=== PATIENT | male | born 1965 | race Two or more races ===

== ENCOUNTER 2016-07-15 06:20 | Emergency (ER) | payer MEDICAID ==
[~2016-07-15] VITALS: Ht 167.6 cm; Wt 85.3 kg
[~2016-07-15 06:20] MED LIST: AMOXICILLI250 MG/5 M ORAL; AUGMENTIN 875-1 EAC1 ORAL; HYDROCODON-ACE1 EA15 ORAL; MECLIZINE HCL25 MG PO; NKM
[2016-07-15 06:35] VITALS: BP 129/86
[2016-07-15] MEDS ORDERED: Tetracaine 0.5% Opth Soln LEFT EYE ONE (07:00)
[2016-07-15] MEDS ORDERED: Tobramycin Op Soln 0.3% RIGHT EYE ONE (07:45)
[2016-07-15] MEDS ORDERED: Ciprofloxacin Opth Soln LEFT EYE ONE (07:45)
--- NOTE | 2016-07-15 07:46 | Emergency Room Report ---
History of Present Illness General Chief Complaint: Eye Problems Source: Patient Present Illness HPI This is a 50-year-old male presented after increased left eye pain and foreign body sensation. The patient stated he was a running some metal at home attempting to fix a garage door. He the reported wearing glasses however he stated that he had some metal enter his eye. Injury occurred 1 day prior to arrival. Allergies: Coded Allergies: No Known Allergies (Unverified , 03/01/12) Patient History Past Medical History: see triage record Reviewed Nursing Documentation: PMH: Agreed, PSxH: Agreed Nursing Documentation-PMH Past Medical History: No Stated History Review of Systems All Other Systems: negative except mentioned in HPI Physical Exam Vital Signs Date Time Temp Pulse Resp B/P Pulse Ox O2 Delivery O2 Flow Rate FiO2 07/15/16 06:24 98.4 68 16 137/84 97 Room Air General Appearance: well appearing, no apparent distress, alert, GCS 15 Head: normocephalic, atraumatic Eyes: bilateral eye PERRL, bilateral eye other - foreign body to left eye ENT: hearing grossly normal, normal voice Neck: full range of motion, supple Respiratory: no respiratory distress, speaking full sentences Cardiovascular #1: normal inspection, normal peripheral pulses, regular rate, rhythm Gastrointestinal: normal inspection, normal bowel sounds, non tender, soft Musculoskeletal: no calf tenderness Neurologic: normal inspection, alert, oriented x3, normal gait Psychiatric: mood/affect normal Skin: no rash Medical Decision Making Diagnostic Impression: Primary Impression: Foreign body, eye ER Course Patient presented for a left eye pain and swelling. Differential diagnoses include was not limited to foreign body, conjunctivitis, perforated globe, among others. The patient was noted to have what appears to be metallic foreign body any left eye visual axis. The visual acuity was noted to be the 20 /50 in the left eye and 20/30 in the right eye. Dr. Luis Tao was contacted for opthalmology consult. Foreign body was removed by Dr. Kumar. Patient was advised to use Cipro eye drops four times a day. The patient's fall Dr. Kumar Last Vital Signs Date Time Temp Pulse Resp B/P Pulse Ox O2 Delivery O2 Flow Rate FiO2 07/15/16 06:35 98.2 66 16 129/86 99 Room Air Status: improved Disposition: HOME, SELF-CARE Condition: Stable Referrals: NOT CHOSEN IPA/MD,REFERRING (PCP) Jorge A Bernal Jul 15, 2016 07:46
[2016-07-15 08:24] VITALS: BP 130/80
--- NOTE | 2016-07-15 08:25 | Consultation ---
Consult Note Consult Note Ophthalmology Emergency Room Consultation Referring Physician: Jorge A Bernal Reason for Consultation: Foreign body, left eye History of the present illness: The patient is a 50-year-old man who was grinding metal at home yesterday when he felt a particle hit his left eye. He was wearing safety glasses. He presented to the [facility] ER and was noting pain and redness in the left eye. Past medical Hx: none Medications: none Allergies: no known drug allergies Family History: non-contributory Social History: denies tobacco use Review of Systems: General: no fever HEENT: see HPI Cardiac: no chest pain Respiratory: no shortness of breath GI: no nausea : no urinary complaints MS: no joint pains Derm: no rashes Psychiatric: no depression Neurologic: no numbness, no weakness Heme: no easy bruising Examination: Mini-mental status examination revealed the patient to be awake, alert and oriented to person, place and time with appropriate mood and affect. Visual Acuity at near without correction: OD: J1 = ~20/25 OS: J1 = ~20/25 Intraocular pressure (tonopen): OD: 13 mmHg OS: 16 mmHg Pupils: equal, round and reactive to light, without afferent pupillary defect in either eye Extra-ocular motility: full OU Confrontational visual gonzalez: full to finger counting OU Anterior Segments: External: normal lids and orbits OD, lid edema OS Conjunctivae: white and quiet OD, 2+ injection OS Cornea: Clear OD, metallic foreign body just superior to the visual axis Anterior Chambers: Deep and Quiet OU Irides: Round and flat OU Lenses: Clear OU Dilated Fundus Examination (phenylephrine 2.5%/tropicamide 1%): Vitreous: Clear OU Optic Nerves: Sharp OU Vessels: Normal course and caliber OU Maculae: Flat OU Periphery: normal OU Studies: anterior segment slit lamp photos were taken documenting the foreign body Assessment/Plan Impression: 1. Corneal foreign body, left eye Assessment and Plan: Mr. Allen has a metallic corneal foreign body in the left eye. This was removed at the slit lamp. The procedure is dictated under a separate report. He will use ciprofloxacin eye drops to the left eye QID. He was given my office contact information to schedule a follow up appointment. Thank you very much for this consultation Luis Kumar M.D. [phone] LUIS KUMAR Jul 15, 2016 08:25
--- NOTE | 2016-07-15 20:30 | Operative Note - Dictated ---
DATE OF OPERATION: 07/15/2016 PREOPERATIVE DIAGNOSIS: Metallic corneal foreign body, left eye. POSTOPERATIVE DIAGNOSIS: Metallic corneal foreign body, left eye. PROCEDURE: Removal of metallic corneal foreign body, left eye. SURGEON: Luis Kumar M.D. ANESTHESIA: Topical. SPECIMENS: None. COMPLICATIONS: None. ESTIMATED BLOOD LOSS: None. INDICATIONS FOR THE PROCEDURE: The patient is a 50-year-old man, who was grinding metal at home yesterday. He was wearing safety goggles but a particle got under his goggles and became lodged in his left eye. He presented to the [facility] emergency room. He was noted to have corneal foreign body. He was informed risks, benefits, details, and alternatives for removal of the foreign body and he elected to proceed. DETAILS OF THE PROCEDURE: The patient was seated with a slit lamp. The correct eye was identified. He was given topical tetracaine drops and ciprofloxacin drops. A 27-gauge needle was then used to remove a small metallic foreign body from the left cornea. Next the rust ring was removed with the needle. At the conclusion of the procedure, additional ciprofloxacin drops were applied to the eye. The patient tolerated the procedure well. Luis Kumra M.D. DR: Javed JOB#: [id number] CC: MICHELLE
== END 2016-07-15 08:29 | disposition home or self-care (01) ==
LOC: EMR 06:52
DX: T15.02XA Foreign body in cornea, left eye, initial encounter (principal); X58.XXXA Exposure to other specified factors, initial encounter; Y93.9 Activity, unspecified; Y92.009 Unspecified place in unspecified non-institutional (private) residence as the place of occurrence of the external cause
CPT/HCPCS: 65222; 99284; Z7502

== ENCOUNTER 2018-02-11 07:38 | Emergency (ER) | payer MEDICAID ==
[~2018-02-11] VITALS: Ht 165.1 cm; Wt 82.6 kg
--- NOTE | 2018-02-11 07:55 | Emergency Room Report ---
History of Present Illness General Chief Complaint: Lower Extremity Injury Source: Patient Present Illness HPI Patient presents with complaints of swelling and ecchymosis to the right ankle Reports that 2 days ago he had a fall off of the chair he had some mild discomfort at that time and the ankle however he has been ambulatory and the discomfort is very minimal however given the swelling and ecchymosis he was concerned Denies any knee pain denies any pelvic pain Denies any other lapse of consciousness denies any neuropathy Allergies: Coded Allergies: No Known Allergies (Unverified , 03/01/12) Patient History Past Medical History: see triage record Pertinent Family History: none Reviewed Nursing Documentation: PMH: Agreed; PSxH: Agreed Nursing Documentation-PMH Past Medical History: No Stated History Review of Systems All Other Systems: negative except mentioned in HPI Physical Exam Vital Signs Date Time Temp Pulse Resp B/P (MAP) Pulse Ox O2 Delivery O2 Flow Rate FiO2 02/11/18 07:40 98.6 79 17 138/80 99 Sp02 EP Interpretation: reviewed, normal General Appearance: well appearing, no apparent distress Head: normocephalic, atraumatic Eyes: bilateral eye PERRL, bilateral eye EOMI ENT: normal pharynx Neck: supple Musculoskeletal: swelling - And ecchymosis noted to the right ankle pulses intact sensory intact Neurologic: alert, oriented x3, responsive Skin: other - As above Lymphatic: no adenopathy Procedures Splinting Splinting : Consent: Verbal Location: Right ankle Pre-Made Type: aircast Splint: sugar-tong Pre-Proc Neuro Vasc Exam: normal Post-Proc Neuro Vasc Exam: normal Patient Tolerated: Well Complications: None Medical Decision Making Diagnostic Impression: Primary Impression: Ankle sprain ER Course X-ray imaging does not reveal any obvious acute fracture however given the swelling and ecchymosis ligamental another soft tissue injury is likely Patient is provided with a splint encouraged for nonweightbearing And close outpatient follow-up , Other X-Ray Diagnostic Results Other X-Ray Diagnostic Results : X-Ray ordered: Right ankle # of Views/Limited Vs Complete: 3 View Indication: Pain EP Interpretation: Yes Interpretation: no dislocation, no fractures, other - Soft tissue swelling Impression: Other - Soft tissue swelling Electronically Signed by: Saulo Woods DO Last Vital Signs Date Time Temp Pulse Resp B/P (MAP) Pulse Ox O2 Delivery O2 Flow Rate FiO2 02/11/18 07:40 98.6 79 17 138/80 99 Status: improved Disposition: HOME, SELF-CARE Condition: Improved Additional Instructions: Patient is provided with the discharge instructions notified to follow up with primary doctor in the next 2-3 days otherwise return to the er with any worsening symptoms. Please note that this report is being documented using DRAGON technology. This can lead to erroneous entry secondary to incorrect interpretation by the dictating instrument. Saulo Woods DO Feb 11, 2018 07:55
[2018-02-11 08:50] VITALS: BP 138/80
--- NOTE | 2018-02-12 10:04 | Diagnostic Imaging Report ---
Indication: Pain right ankle Comparison: None Findings: 3 views of the right ankle obtained. No acute fracture, malalignment, periostitis, or osteochondral defects are identified. Soft tissue swelling is present. Impression: No acute fracture. Soft tissue swelling noted
== END 2018-02-11 08:50 | disposition home or self-care (01) ==
LOC: EMR 08:00
DX: S93.401A Sprain of unspecified ligament of right ankle, initial encounter (principal); W07.XXXA Fall from chair, initial encounter; Y93.9 Activity, unspecified; Y92.9 Unspecified place or not applicable
CPT/HCPCS: 99283

== ENCOUNTER 2020-03-21 04:17 | Emergency (ER) | payer MEDICAID ==
[~2020-03-21] VITALS: Ht 162.6 cm; Wt 85.7 kg
--- NOTE | 2020-03-21 05:10 | NUR ---
ED Nurse Note: pt comes into ED c/o anxiety for the last 2-3 weeks. states he has numbness/tingling in left arm and sometimes his left leg. pt a&ox3, vs wnl with slightly elevated BP. pt denies any pain at this time. pt breathing without complications on RA and resting comfortably on stretcher. labs and urine obtained. IV 20g right AC established. orders sent to lab. pt received medication. pt going to CT. awaiting pts return.
--- NOTE | 2020-03-21 05:11 | Emergency Room Report ---
History of Present Illness General Chief Complaint: General Complaint Source: Patient Present Illness HPI Is a 54-year-old male with no past medical history. He presents with chief complaint of and dizziness. Onset around 10 PM. When he said he went to sleep he woke up feeling he could not breathe and felt he is going to pass away. He also now complains of left arm numbness and tingliness. Similar symptom 3 weeks ago but it went away on its own. Never had a history of anxiety before. No fever chills but no nausea no vomiting. No history of high blood pressure. No stress or anything cough. Not suicidal or homicidal. Allergies: Coded Allergies: No Known Allergies (Unverified , 03/21/20) COVID-19 Screening Contact w/high risk pt: No Experienced COVID-19 symptoms?: No COVID-19 Testing performed MOLD TOOLER: No Patient History Past Medical History: see triage record, old chart reviewed Past Surgical History: none Pertinent Family History: none Social History: Denies: smoking Immunizations: other Reviewed Nursing Documentation: PMH: Agreed; PSxH: Agreed Nursing Documentation-PMH Past Medical History: No Stated History Review of Systems Eye: Denies: eye pain, blurred vision ENT: Denies: ear pain, nose congestion, throat swelling Respiratory: Denies: cough, shortness of breath Cardiovascular: Denies: chest pain, palpitations Gastrointestinal: Denies: abdominal pain, diarrhea, nausea, vomiting Musculoskeletal: Denies: back pain, joint pain Skin: Denies: rash Neurological: Reports: headache, paresthesia; Denies: numbness Endocrine: Denies: increased thirst, increased urine Hematologic/Lymphatic: Denies: easy bruising All Other Systems: negative except mentioned in HPI Physical Exam Vital Signs Date Time Temp Pulse Resp B/P (MAP) Pulse Ox O2 Delivery O2 Flow Rate FiO2 03/21/20 05:01 98.2 68 18 152/80 (104) 100 Room Air Vitals with high blood pressure Sp02 EP Interpretation: reviewed, normal General Appearance: well appearing, no apparent distress, alert Head: normocephalic, atraumatic Eyes: bilateral eye PERRL, bilateral eye EOMI ENT: hearing grossly normal, normal pharynx Neck: full range of motion, supple, no meningismus Respiratory: chest non-tender, lungs clear, normal breath sounds Cardiovascular #1: regular rate, rhythm, no murmur Gastrointestinal: normal bowel sounds, non tender, no mass, no organomegaly, no bruit, non-distended Musculoskeletal: back normal, normal range of motion, gait/station normal Psychiatric: anxious Medical Decision Making Diagnostic Impression: Primary Impression: Anxiety, generalized ER Course This patient with symptoms consistent with generalized anxiety. His blood pressure is elevated initially. Now that he is calmer after Ativan, blood pressure 130/76. There is no evidence of any endorgan damage. No evidence of any bleed, TIA or CVA. No evidence of ACS, PE, dissection to name a few. Will discharge home. Rhythm Strip Diag. Results EP Interpretation: yes Rate: 75 Rhythm: NSR, no PVC's, no ectopy CT/MRI/US Diagnostic Results CT/MRI/US Diagnostic Results : Imaging Test Ordered: CT head Impression Negative per radiologist Last Vital Signs Date Time Temp Pulse Resp B/P (MAP) Pulse Ox O2 Delivery O2 Flow Rate FiO2 03/21/20 05:01 98.2 68 18 152/80 (104) 100 Room Air Status: improved Disposition: HOME, SELF-CARE Condition: Stable Scripts Lorazepam* (ATIVAN*) 1 Mg Tablet 1 MG ORAL THREE TIMES A DAY for anxiety, #20 TAB Prov: Jules Garcia MD 03/21/20 Referrals: NOT CHOSEN IPA/,REFERRING (PCP) Additional Instructions: Follow-up with your doctor in 7 days. Return if symptoms worsen. Jules Garcia MD Mar 21, 2020 05:11
[2020-03-21] MEDS ORDERED: LORazepam Inj 2mg/ml 1ml IV ONE (05:15)
[2020-03-21 05:23] VITALS: BP 161/87
[2020-03-21 05:32] LABS: APPEARANCE,URINE CLEAR; BASOPHILS % (AUTO) 0.7 % (0.0-2.0); BILIRUBIN, URINE NEGATIVE (NEGATIVE); COLOR,URINE PALE YELLOW; EOSINOPHILS % (AUTO) 1.2 % (0.0-3.0); GLUCOSE, URINE (UA) NEGATIVE (NEGATIVE); HEMATOCRIT 46.6 % (42.0-52.0); HEMOGLOBIN 15.3 G/DL (14.2-18.0); KETONES,URINE NEGATIVE (NEGATIVE); LEUKOCYTE ESTERASE ,URINE NEGATIVE (NEGATIVE); LYMPHOCYTES % (AUTO) 28.7 % (20.0-45.0); MEAN CORPUSCULAR VOLUME 94 FL (80-99); MONOCYTES % (AUTO) 6.7 % (1.0-10.0); NEUTROPHILS % (AUTO) 62.8 % (45.0-75.0); NITRITE,URINE NEGATIVE (NEGATIVE); PH,URINE 6 (4.5-8.0); PLATELET COUNT 256 K/UL (150-450); PROTEIN,URINE NEGATIVE (NEGATIVE); RED BLOOD COUNT 4.96 M/UL (4.70-6.10); RED CELL DISTRIBUTION WIDTH 11.4 % (11.6-14.8); UROBILINOGEN,URINE NORMAL MG/DL (0.0-1.0); WHITE BLOOD COUNT 6.5 K/UL (4.8-10.8)
[2020-03-21 05:45] LABS: ANION GAP 9 mmol/L (5-15); BLOOD UREA NITROGEN 16 mg/dL (7-18); CALCIUM 8.7 MG/DL (8.5-10.1); CARBON DIOXIDE 26 MMOL/L (21-32); CHLORIDE 106 MMOL/L (98-107); CREATININE 0.8 MG/DL (0.55-1.30); POTASSIUM 4.1 MMOL/L (3.5-5.1); SODIUM 141 MMOL/L (136-145)
[2020-03-21] MEDS ORDERED: ATIVAN1 MG ORAL (05:58)
[2020-03-21 06:01] VITALS: BP 120/69
--- NOTE | 2020-03-21 06:13 | Diagnostic Imaging Report ---
EXAM: CT Head Without Intravenous Contrast CLINICAL HISTORY: DIZZY TECHNIQUE: Axial computed tomography images of the head/brain without intravenous contrast. CTDI is 53.40 mGy and DLP is 1098.90 mGy-cm. One or more of the following dose reduction techniques were used: automated exposure control, adjustment of the mA and/or kV according to patient size, use of iterative reconstruction technique. COMPARISON: No relevant prior studies available. FINDINGS: Brain: Unremarkable. No hemorrhage. No significant white matter disease. No edema. Ventricles: Unremarkable. No ventriculomegaly. Bones/joints: Unremarkable. No acute fracture. Soft tissues: Unremarkable. Sinuses: Unremarkable as visualized. No acute sinusitis. Mastoid air cells: Unremarkable as visualized. No mastoid effusion. IMPRESSION: No evidence of acute intracranial abnormality.
[2020-03-21 06:25] VITALS: BP 127/78
--- NOTE | 2020-03-21 06:26 | NUR ---
ER DISCHARGE NOTE: Patient is cleared to be discharged per ER MD, pt is aox4, on room air, with stable vital signs. pt was given dc and prescription instructions, pt was able to verbalize understanding, pt id band and iv site removed without complications. pt is able to ambulate with steady gait. pt took all belongings.
== END 2020-03-21 06:26 | disposition home or self-care (01) ==
LOC: EMR 05:02
DX: F41.1 Generalized anxiety disorder (principal)
CPT/HCPCS: 36415; 70450; 80048; 81001; 84484; 85025; 96374; Z7502; 99284

== ENCOUNTER 2020-04-04 16:37 | Emergency (ER) | payer MEDICAID ==
[~2020-04-04] VITALS: Ht 167.6 cm; Wt 87.1 kg
[~2020-04-04 16:37] MED LIST changes: +ATIVAN1 MG ORAL
[2020-04-04 17:17] VITALS: BP 131/80
[2020-04-04 17:40] VITALS: BP 125/72
--- NOTE | 2020-04-04 17:40 | Emergency Room Report ---
History of Present Illness General Chief Complaint: Dizziness Present Illness HPI 54 YO Male c/o Intermittent dizziness when eyes closed. Pt. also reports symptoms when standing or lying. He describes room spinning. He reports right ear pain intermittently as well. Denies visual/hearing changes. Pt. reports bilateral arm and feet numbness and paresthesias intermittent. He reports since arriving at ED has had constant left arm and hand paresthesia. He denies neck pain or previous neck injuries. He denies muscle weakness. He denies CP, SOB,or JORGENSEN. Reports nausea but denies vomiting. Has been taking Meclizine x 2 days with no relief. PT. was previously rx'd Ativan and Vitamin D. Pt. reports he has unwanted SE's with Ativan of constipation, nasal and oral dryness and congestion. Pt. reports his symptoms are causing him to be anxious. Pt. reports sitting up on the edge of the bed is when he has most relief. He reports exacerbation of the room spinning around him if he looks too quickly to the left as well. He denies imbalance or difficulty with walking. He denies drug use. He denies recent head trauma. He reports vertigo once in the past "years ago". (Ana Sahu) Allergies: Coded Allergies: No Known Allergies (Unverified , 03/21/20) COVID-19 Screening Contact w/high risk pt: No Experienced COVID-19 symptoms?: No COVID-19 Testing performed MANAGER NEONATAL: No (Ana Sahu) Patient History Past Medical History: see triage record Past Surgical History: none Pertinent Family History: none Reviewed Nursing Documentation: PMH: Agreed; PSxH: Agreed (Ana Sahu) Review of Systems All Other Systems: negative except mentioned in HPI (Ana Sahu) Physical Exam Vital Signs Date Time Temp Pulse Resp B/P (MAP) Pulse Ox O2 Delivery O2 Flow Rate FiO2 04/04/20 16:48 99.0 74 18 129/86 (100) 95 Room Air 04/04/20 17:18 100 Sp02 EP Interpretation: reviewed, normal General Appearance: no apparent distress, alert, GCS 15, non-toxic Head: normocephalic, atraumatic Eyes: bilateral eye normal inspection, bilateral eye PERRL, bilateral eye EOMI ENT: hearing grossly normal, normal voice, TMs + canals normal Neck: full range of motion Respiratory: chest non-tender, lungs clear, normal breath sounds, no wheezing, speaking full sentences Cardiovascular #1: regular rate, rhythm, no edema Musculoskeletal: back normal, normal range of motion, gait/station normal, non- tender, other Neurologic: alert, motor strength/tone normal, oriented x3, sensory intact, responsive, speech normal, normal gait, no pronator, other - unable to illicit nystagmus. Psychiatric: judgement/insight normal Lymphatic: no adenopathy (Ana Sahu) Medical Decision Making PA Attestation Dr. Jose is my supervising Physician whom patient management has been discussed with. (Ana Sahu) Diagnostic Impression: Primary Impression: Vertigo ER Course 54 YO Male c/o Intermittent dizziness when eyes closed. Pt. also reports symptoms when standing or lying. He describes room spinning. He reports right ear pain intermittently as well. Denies visual/hearing changes. Pt. reports bilateral arm and feet numbness and paresthesias intermittent. He reports since arriving at ED has had constant left arm and hand paresthesia. He denies neck pain or previous neck injuries. He denies muscle weakness. He denies CP, SOB,or JORGENSEN. Reports nausea but denies vomiting. Has been taking Meclizine x 2 days with no relief. PT. was previously rx'd Ativan and Vitamin D. Pt. reports he has unwanted SE's with Ativan of constipation, nasal and oral dryness and congestion. Pt. reports his symptoms are causing him to be anxious. Pt. reports sitting up on the edge of the bed is when he has most relief. He reports exacerbation of the room spinning around him if he looks too quickly to the left as well. He denies imbalance or difficulty with walking. He denies drug use. He denies recent head trauma. He reports vertigo once in the past "years ago". Ddx considered but are not limited to Mnire's, BPPV, labyrinthitis, cerebellar stroke, hypovolemia, cardiac cause. Vital signs: are WNL, pt. is afebrile No focal deficit to indicate TIA or CVA. No vertical nystagmus. Unable to illicit nystagmus. ORDERS: -EKG: NSR 67 BPM, no st changes. -CMP: Unremarkable - CBC: unremarkable -Orthostatic VS: HR increased from 68-86 with standing, less than 20 bmp. BP did not have much variation. ED INTERVENTIONS: - 1 Liter NS Bolus x 2 - 25mg Benadryl IV pt. failed Margaret Maneuver. DISCHARGE: At this time pt. is stable for d/c to home. Will provide printed patient care instructions, and any necessary prescriptions. Care plan and follow up instructions have been discussed with the patient prior to discharge. (Ana Sahu) ER Course Patient was able to ambulate without assistance. MRI read by radiology showed sinus disease without evidence of acute intracranial pathology. Patient was advised to follow-up with his primary care physician for recheck. He was advised to return if worse. This medical record is generated with [employer] global implementation manager software. There may be some global implementation manager discrepancies related to use of this software (Jorge A Bernal MD) EKG Diagnostic Results Troponin ordered: No EKG Time: 17:26 Rate: normal Rhythm: NSR - [address] Segments: no acute changes ASA given to the pt in ED: No PA Scribe Text This Interpretation was scribed by EMILIANO Sahu. (Ana Sahu) CT/MRI/US Diagnostic Results CT/MRI/US Diagnostic Results : Imaging Test Ordered: MRI Brain w. contrast (Ana Sahu) Last Vital Signs Date Time Temp Pulse Resp B/P (MAP) Pulse Ox O2 Delivery O2 Flow Rate FiO2 04/04/20 17:18 69 18 Room Air 100 04/04/20 17:17 131/80 100 04/04/20 16:48 99.0 (Ana Sahu) Status: improved (Jorge A Bernal MD) Disposition: HOME, SELF-CARE Condition: Stable Signed Out To: Dr. Jose (Ana Sahu) Scripts Clarithromycin* (CLARITHROMYCIN*) 500 Mg Tablet 500 MG PO Q12HR, #28 TAB Prov: Jorge A Bernal MD 04/04/20 Meclizine Hcl* (MECLIZINE*) 25 Mg Tablet 25 MG ORAL THREE TIMES A DAY, #30 TAB Prov: Jorge A Bernal MD 04/04/20 Ana Sahu Apr 04, 2020 17:40 Jorge A Bernal MD Apr 04, 2020 23:12
[2020-04-04 17:41] VITALS: BP 120/77
[2020-04-04 17:42] VITALS: BP 119/80
[2020-04-04 17:44] LABS: APPEARANCE,URINE CLEAR; BILIRUBIN, URINE NEGATIVE (NEGATIVE); COLOR,URINE PALE YELLOW; GLUCOSE, URINE (UA) NEGATIVE (NEGATIVE); KETONES,URINE 1+ (NEGATIVE); LEUKOCYTE ESTERASE ,URINE NEGATIVE (NEGATIVE); NITRITE,URINE NEGATIVE (NEGATIVE); PH,URINE 6 (4.5-8.0); PROTEIN,URINE NEGATIVE (NEGATIVE); UROBILINOGEN,URINE NORMAL MG/DL (0.0-1.0)
[2020-04-04 17:46] LABS: BASOPHILS % (AUTO) 1.7 % (0.0-2.0); EOSINOPHILS % (AUTO) 0.6 % (0.0-3.0); HEMATOCRIT 41.9 % (42.0-52.0); HEMOGLOBIN 13.9 G/DL (14.2-18.0); LYMPHOCYTES % (AUTO) 25.9 % (20.0-45.0); MEAN CORPUSCULAR VOLUME 94 FL (80-99); MONOCYTES % (AUTO) 6.3 % (1.0-10.0); NEUTROPHILS % (AUTO) 65.5 % (45.0-75.0); PLATELET COUNT 281 K/UL (150-450); RED BLOOD COUNT 4.47 M/UL (4.70-6.10); RED CELL DISTRIBUTION WIDTH 11.6 % (11.6-14.8); WHITE BLOOD COUNT 8.3 K/UL (4.8-10.8)
[2020-04-04 18:14] LABS: ANION GAP 12 mmol/L (5-15); BLOOD UREA NITROGEN 18 mg/dL (7-18); CALCIUM 8.7 MG/DL (8.5-10.1); CARBON DIOXIDE 24 MMOL/L (21-32); CHLORIDE 105 MMOL/L (98-107); CREATININE 0.7 MG/DL (0.55-1.30); POTASSIUM 3.7 MMOL/L (3.5-5.1); SODIUM 140 MMOL/L (136-145)
[2020-04-04] MEDS ORDERED: DiphenhydrAMINE 50mg/ml Inj IVP ONE (18:45)
[2020-04-04 18:55] VITALS: BP 134/76
--- NOTE | 2020-04-04 18:58 | NUR ---
pt arrived for dizziness, anxiety, vertigo, nauseousness. pt denies vomiting. pt seen last week for symptoms. pt given medication and taking at home with minimal relief. pt states it gets worse at night when he sleeps and closes his eyes. pt states R ear pain when he feels unsteady at home. pt medicated, orthostatic vitals taken, ortho VSS. pt denies falling, denies vision changes.
[2020-04-04] MEDS ORDERED: Gadavist 7.5mMol/7.5ml vial IV PRN (20:30)
--- NOTE | 2020-04-04 22:38 | Diagnostic Imaging Report ---
EXAM: MR Head Without and With Intravenous Contrast CLINICAL HISTORY: DIZZY TECHNIQUE: Magnetic resonance images of the head/brain without and with intravenous contrast in multiple planes. COMPARISON: CT head dated 03/20/2020. FINDINGS: Brain: Unremarkable for age. No mass. No hemorrhage. No acute infarct. Ventricles: Unremarkable. No ventriculomegaly. Bones/joints: Unremarkable. Sinuses: Mucosal thickening of the left greater than right maxillary sinuses. No acute sinusitis. Mastoid air cells: Unremarkable as visualized. No mastoid effusion. Orbits: Unremarkable as visualized. IMPRESSION: 1. No acute intracranial abnormality. 2. Bilateral maxillary sinus disease.
[2020-04-04] MEDS ORDERED: MECLIZINE HCL25 MG ORAL (23:06)
[2020-04-04] MEDS ORDERED: CLARITHROMYCIN500 MG PO (23:07)
[2020-04-04 23:09] VITALS: BP 36/72
--- NOTE | 2020-04-04 23:10 | NUR ---
ER DISCHARGE NOTE: Patient is cleared to be discharged per ERMD, pt is aox4, on room air, with stable vital signs. pt was given dc and prescription instructions, pt was able to verbalize understanding, pt id band and iv site removed without complications. pt is able to ambulate with steady gait. pt took all belongings.
== END 2020-04-04 23:10 | disposition home or self-care (01) ==
LOC: EMR 18:01
DX: R42 Dizziness and giddiness (principal); R20.2 Paresthesia of skin; J32.0 Chronic maxillary sinusitis
CPT/HCPCS: 36415; 70553; 80048; 80307; 81003; 85025; 93005; 96361; 96374; A9585; J1200; J7030; Z7502; 99284